=== PATIENT | male | born 1935 | race Caucasian/White ===

== ENCOUNTER 2017-09-19 12:00 | Outpatient (CLI) | payer MEDICARE, BC | END 2017-09-19 12:01 | disposition home or self-care (01) | LOC: BICRAD 12:00 | PROVIDERS: ATTEND Podiatrist | DX: M25.572 Pain in left ankle and joints of left foot (principal) ==

== ENCOUNTER 2021-06-23 10:14 | Outpatient (CLI) | payer MEDICARE ==
[2021-06-23 11:37] LABS: Hemoglobin 15.1 g/dL (13.5-17.5); Mean Corpuscular HGB CONC 32.9 g/dL (32.0-36.0); Mean Corpuscular Hemoglobin 32.8 pg (27.0-33.0); Mean Corpuscular Volume 99.6 fl (81.2-95.1); Mean Platelet Volume 10.2 fl (7.4-10.4); Platelet Count 270 10x3/uL (150-450); RBC Distribution Width 13.1 % (11.5-14.5); Red Blood Cell (RBC) Count 4.61 10x6/uL (4.32-5.72); White Blood Cell (WBC) Count 7.5 10x3/uL (3.5-10.5)
[2021-06-23 11:47] LABS: PTT 26.1 sec (22.0-33.0); Prothrombin Time 10.8 sec (9.5-12.1)
[2021-06-23 22:53] LABS: SARS-CoV-2 PCR by NAA Not Detected (NotDetected)
== END 2021-06-23 10:15 | disposition home or self-care (01) ==
LOC: LABBT 10:14
PROVIDERS: ATTEND Neurological Surgery
DX: Z01.812 Encounter for preprocedural laboratory examination (principal); M48.061 Spinal stenosis, lumbar region without neurogenic claudication; M48.07 Spinal stenosis, lumbosacral region; Z20.822 Contact with and (suspected) exposure to COVID-19
CPT/HCPCS: 85027; 85610; 85730; U0003; U0005

== ENCOUNTER 2021-06-26 05:38 | Inpatient (IN) | payer MEDICARE ==
[2021-06-22 13:53] VITALS: BMI 33.5
[2021-06-26] MEDS ORDERED: Bupivacaine PF 0.5% 30 ML VIAL ONE (06:12)
[2021-06-26] MEDS ORDERED: Thrombin 5000 UNITS/5 ML VIAL ONE (06:12)
[2021-06-26] MEDS ORDERED: Neomycin-Polymyxin 1 ML AMP ONE (06:12)
[2021-06-26] MEDS ORDERED: EPINEPHrine 1 MG/ML AMP ONE (06:12)
[2021-06-26] MEDS ORDERED: Acetaminophen/Codeine 30-300mg Tablet PO PRN (06:19)
[2021-06-26] MEDS ORDERED: HYDROcodone/Acetaminophen 7.5/325 mg Tablet PO PRN (06:19)
[2021-06-26] MEDS ORDERED: Bisacodyl 10 MG SUPP PR PRN (06:19)
[2021-06-26] MEDS ORDERED: Milk Of Magnesia 30 ML UDCUP PO PRN (06:19)
[2021-06-26] MEDS ORDERED: Acetaminophen 325 MG TAB PO PRN (06:19)
[2021-06-26] MEDS ORDERED: diphenhydrAMINE 50 MG/ML VIAL IVP PRN (06:19)
[2021-06-26] MEDS ORDERED: Mag-Al 1200 mg/1200 mg/30 ML UDCUP PO PRN (06:19)
[2021-06-26] MEDS ORDERED: Fentanyl 250 MCG/5 ML VIAL ONE (06:37)
[2021-06-26] MEDS ORDERED: Albumin 5% 500 ML ONE (06:37)
[2021-06-26] MEDS ORDERED: ceFAZolin 2 GM/Dextrose 50 ML IVPB ONE (06:50)
[2021-06-26 07:07] LABS: Anion Gap 16 mmol/L (10-20); BUN (Urea Nitrogen) 25 mg/dL (8.4-25.7); Calc. Creatinine Clearance 56 mL/min (70-130); Calcium 9.5 mg/dL (7.8-10.44); Carbon Dioxide 22 mmol/L (23-31); Chloride 106 mmol/L (98-107); Glucose 104 mg/dL (83-110); Potassium 4.6 mmol/L (3.5-5.1); Sodium 139 mmol/L (136-145)
[2021-06-26] MEDS ORDERED: Vecuronium 10 MG VIAL ONE (07:11)
[2021-06-26] MEDS ORDERED: PROPOFOL 200 MG/20 ML VIAL ONE (07:11)
[2021-06-26] MEDS ORDERED: Ondansetron PF 4 MG/2 ML Vial ONE (07:11)
[2021-06-26] MEDS ORDERED: Rocuronium Bromide 10 MG/ML (10ML VIAL) ONE (07:11)
[2021-06-26] MEDS ORDERED: Lidocaine 1% PF 5 ML VIAL ONE (07:11)
[2021-06-26] MEDS ORDERED: Fentanyl 100 MCG/2 ML VIAL ONE ×2 (12:53→14:17)
[2021-06-26] MEDS ORDERED: Promethazine HCl 25 MG/ML VIAL IM PRN (12:56)
[2021-06-26] MEDS ORDERED: Promethazine HCl 25 MG/ML VIAL IVPB PRN (12:56)
[2021-06-26] MEDS ORDERED: Ondansetron HCl/PF 4 MG/2 ML Vial IVP PRN (12:56)
[2021-06-26] MEDS ORDERED: SUGAMMADEX SODIUM 200 MG/2 ML VIAL ONE (13:03)
[2021-06-26] MEDS ORDERED: Promethazine HCl 25 MG/ML VIAL ONE (14:08)
[2021-06-26] MEDS: Morphine 4 MG/ML VIAL SLOW IVP PRN (17:42)
[2021-06-26] MEDS: Sodium Chloride 0.9% 1,000 ML IV SCH ×2 (19:38→21:25)
[2021-06-26] MEDS: ceFAZolin 2 GM/Dextrose 50 ML 2 GM in Premix Bag 1 BAG IVPB SCH ×2 (19:38→21:25)
[2021-06-26] MEDS: Ondansetron PF 4 MG/2 ML Vial IVP PRN (19:53)
[2021-06-26] MEDS: Amitriptyline HCl 25 MG TAB PO SCH (21:26)
[2021-06-26] MEDS: Doxepin HCl 10 MG CAP PO SCH (21:26)
[2021-06-26] MEDS: Pramipexole Di-HCl 0.125 MG TAB PO SCH (21:27)
[2021-06-27] MEDS: ceFAZolin 2 GM/Dextrose 50 ML 2 GM in Premix Bag 1 BAG IVPB SCH (03:00)
[2021-06-27] MEDS: Morphine 4 MG/ML VIAL SLOW IVP PRN (04:39)
[2021-06-27] MEDS: Ondansetron PF 4 MG/2 ML Vial IVP PRN (09:02)
[2021-06-27] MEDS ORDERED: Ondansetron PF 4 MG/2 ML Vial IVP PRN (10:04)
[2021-06-27] MEDS ORDERED: Polyethylene Glycol 3350 17 GM Packet PO PRN (10:16)
[2021-06-27] MEDS ORDERED: Simethicone Chewable 80 MG TAB PO SCH (10:30)
[2021-06-27] MEDS ORDERED: Senokot S 8.6-50 MG TAB PO SCH (10:30)
[2021-06-27] MEDS: Sodium Chloride 0.9% 1,000 ML IV SCH (12:30)
[2021-06-27] MEDS: Cyclobenzaprine 10 MG TAB PO PRN ×2 (12:32→20:56)
[2021-06-27] MEDS: Simethicone Chewable 80 MG TAB PO SCH ×2 (17:01→20:56)
[2021-06-27] MEDS: Senokot S 8.6-50 MG TAB PO SCH (20:56)
[2021-06-27] MEDS: Pramipexole Di-HCl 0.125 MG TAB PO SCH (20:56)
[2021-06-27] MEDS: Doxepin HCl 10 MG CAP PO SCH (20:56)
[2021-06-27] MEDS: Amitriptyline HCl 25 MG TAB PO SCH (20:56)
[2021-06-28] MEDS ORDERED: diphenhydrAMINE 25 MG CAP PO SCH (00:45)
[2021-06-28] MEDS: Sodium Chloride 0.9% 1,000 ML IV SCH (01:16)
[2021-06-28] MEDS: Simethicone Chewable 80 MG TAB PO SCH ×4 (06:01→21:13)
[2021-06-28 07:42] LABS: Hemoglobin 12.3 g/dL (14.0-18.0); Platelet Count 199 thou/uL (130-400)
[2021-06-28 08:03] LABS: Anion Gap 11 mmol/L (10-20); BUN (Urea Nitrogen) 22 mg/dL (8.4-25.7); Calc. Creatinine Clearance 60 mL/min (70-130); Calcium 8.7 mg/dL (7.8-10.44); Carbon Dioxide 26 mmol/L (23-31); Chloride 98 mmol/L (98-107); Glucose 140 mg/dL (83-110); Sodium 131 mmol/L (136-145)
[2021-06-28] MEDS: Senokot S 8.6-50 MG TAB PO SCH ×2 (08:40→21:13)
[2021-06-28] MEDS: Cyclobenzaprine 10 MG TAB PO PRN ×2 (08:40→22:56)
[2021-06-28] MEDS: Morphine 4 MG/ML VIAL SLOW IVP PRN (08:41)
[2021-06-28] MEDS: HYDROcodone/Acetaminophen 10/325 mg Tablet PO PRN ×2 (17:56→22:56)
[2021-06-28] MEDS: Doxepin HCl 10 MG CAP PO SCH (21:13)
[2021-06-28] MEDS: Amitriptyline HCl 25 MG TAB PO SCH (21:13)
[2021-06-28] MEDS: Pramipexole Di-HCl 0.125 MG TAB PO SCH (21:13)
[2021-06-29] MEDS: Simethicone Chewable 80 MG TAB PO SCH ×5 (06:46→21:16)
[2021-06-29] MEDS ORDERED: Furosemide 40 MG/4 ML VIAL SLOW IVP SCH (11:00)
[2021-06-29] MEDS: Senokot S 8.6-50 MG TAB PO SCH ×2 (11:06→21:17)
[2021-06-29] MEDS ORDERED: HYDROcodone/Acetaminophen 7.5/325 mg Tablet PO PRN (17:08)
[2021-06-29] MEDS ORDERED: Acetaminophen/Codeine 30-300mg Tablet PO PRN (17:08)
[2021-06-29] MEDS ORDERED: HYDROcodone/Acetaminophen 10/325 mg Tablet PO PRN (17:08)
[2021-06-29] MEDS ORDERED: Acetaminophen 325 MG TAB PO PRN (17:08)
[2021-06-29] MEDS ORDERED: Mag-Al 1200 mg/1200 mg/30 ML UDCUP PO PRN (17:09)
[2021-06-29] MEDS ORDERED: Cyclobenzaprine 10 MG TAB PO PRN (17:09)
[2021-06-29] MEDS ORDERED: Morphine 4 MG/ML VIAL SLOW IVP PRN (17:09)
[2021-06-29] MEDS ORDERED: Milk Of Magnesia 30 ML UDCUP PO PRN (17:09)
[2021-06-29] MEDS ORDERED: Bisacodyl 10 MG SUPP PR PRN (17:09)
[2021-06-29] MEDS ORDERED: diphenhydrAMINE 50 MG/ML VIAL IVP PRN (17:09)
[2021-06-29] MEDS ORDERED: Polyethylene Glycol 3350 17 GM Packet PO PRN (17:11)
[2021-06-29] MEDS ORDERED: Ondansetron PF 4 MG/2 ML Vial IVP PRN (17:11)
[2021-06-29] MEDS ORDERED: Amitriptyline HCl 25 MG TAB PO SCH (21:00)
[2021-06-29] MEDS ORDERED: Doxepin HCl 10 MG CAP PO SCH (21:00)
[2021-06-29] MEDS ORDERED: Pramipexole Di-HCl 0.125 MG TAB PO SCH (21:00)
[2021-06-30] MEDS: Simethicone Chewable 80 MG TAB PO SCH ×2 (06:53→12:02)
[2021-06-30] MEDS: Senokot S 8.6-50 MG TAB PO SCH (08:55)
[2021-06-30 13:18] VITALS: BP 135/66; TEMP 98.2
== END 2021-06-30 17:25 | disposition swing bed (61) | DRG 454 ==
LOC: SDC 05:38 → SURG B 15:42 → UNDOADMIN 06-27 15:42 → SURG B 06-27 15:42 → SDC 06-29 10:11 → SURG B 06-29 10:11
PROVIDERS: ADMIT Neurological Surgery; ATTEND Neurological Surgery
PROC: 0SG30AJ Fusion of Lumbosacral Joint with Interbody Fusion Device, Posterior Approach, Anterior Column, Open Approach (ICD-10-PCS; principal; 2021-06-26)
PROC: 0SG3071 Fusion of Lumbosacral Joint with Autologous Tissue Substitute, Posterior Approach, Posterior Column, Open Approach (ICD-10-PCS; 2021-06-26)
PROC: 0SB20ZZ Excision of Lumbar Vertebral Disc, Open Approach (ICD-10-PCS; 2021-06-26)
PROC: 0SB40ZZ Excision of Lumbosacral Disc, Open Approach (ICD-10-PCS; 2021-06-26)
PROC: 01NB0ZZ Release Lumbar Nerve, Open Approach (ICD-10-PCS; 2021-06-26)
PROC: 01NR0ZZ Release Sacral Nerve, Open Approach (ICD-10-PCS; 2021-06-26)
DX: M48.062 Spinal stenosis, lumbar region with neurogenic claudication (principal); Z20.822 Contact with and (suspected) exposure to COVID-19; N17.9 Acute kidney failure, unspecified; M51.16 Intervertebral disc disorders with radiculopathy, lumbar region; J42 Unspecified chronic bronchitis; G47.30 Sleep apnea, unspecified; F03.90 Unspecified dementia, unspecified severity, without behavioral disturbance, psychotic disturbance, mood disturbance, and anxiety; J45.909 Unspecified asthma, uncomplicated; G25.81 Restless legs syndrome; M19.90 Unspecified osteoarthritis, unspecified site; G89.29 Other chronic pain; M51.17 Intervertebral disc disorders with radiculopathy, lumbosacral region; F32.A Depression, unspecified; N18.30 Chronic kidney disease, stage 3 unspecified; R10.9 Unspecified abdominal pain; R11.2 Nausea with vomiting, unspecified; T41.0X5A Adverse effect of inhaled anesthetics, initial encounter; R60.9 Edema, unspecified; Z79.899 Other long term (current) drug therapy; Z88.8 Allergy status to other drugs, medicaments and biological substances; Z91.040 Latex allergy status; Z91.048 Other nonmedicinal substance allergy status; Z87.891 Personal history of nicotine dependence; Z90.49 Acquired absence of other specified parts of digestive tract; Z91.09 Other allergy status, other than to drugs and biological substances
CPT/HCPCS: 36415; 76000; 80048; 85014; 85018; 85049; 86850; 86900; 86901; 93005; 93010; 93970; C1713; C1768; C1776; J0171; J0690; J1200; J1940; J2270; J2405; J2550; J2704; J3010; J3370; J7050; P9045; S0020

== ENCOUNTER 2024-03-05 07:32 | Day surgery (SDC) | payer MEDICARE ==
[2024-03-02 11:42] VITALS: BMI 18.8
[2024-03-05] MEDS ORDERED: PROPOFOL 40 ML ONE (08:30)
[2024-03-05] MEDS ORDERED: Lidocaine 1% PF 5 ML VIAL ONE (08:30)
[2024-03-05] MEDS ORDERED: PHENYLEPHRINE-NS 100 MCG/ML 10 ML SYRINGE ONE (09:39)
[2024-03-05] MEDS ORDERED: GLYCOPYRROLATE/PF 0.2 MG/ML VIAL ONE (09:39)
== END 2024-03-05 11:45 | disposition home or self-care (01) ==
LOC: SDC 07:32
PROVIDERS: ATTEND Internal Medicine Gastroenterology
PROC: 0D958ZX Drainage of Esophagus, Via Natural or Artificial Opening Endoscopic, Diagnostic (ICD-10-PCS; principal; 2024-03-05)
DX: C15.5 Malignant neoplasm of lower third of esophagus (principal); K31.89 Other diseases of stomach and duodenum; Z90.49 Acquired absence of other specified parts of digestive tract; Z88.5 Allergy status to narcotic agent
CPT/HCPCS: 43239; J2704; J3490; 88305; 88360; 88361; 88377